=== PATIENT | female | born 1955 | race Caucasian/White ===

== ENCOUNTER 2017-10-12 10:16 | Day surgery (SDC) | payer OTHER ==
[~2017-10-12 10:16] MED LIST: NACL 0.9% 1000 ML 1,000 ML ONE; XYLOCAINE MPF 2% ONE
[2017-10-12] MEDS ORDERED: NACL 0.9% 1000 ML 1,000 ML IV SCH (13:00)
--- NOTE | 2017-10-12 13:52 | Anesthesia Consultation ---
Anesthesia Consult and Med Hx Date of service: 10/12/17 - Airway Anesthetic Teeth Evaluation: Good ROM Head & Neck: Adequate Mental/Hyoid Distance: Adequate Mallampati Class: Class I Intubation Access Assessment: Good - Pulmonary Exam CTA: Yes - Cardiac Exam Cardiac Exam: RRR - Pre-Operative Health Status ASA Pre-Surgery Classification: ASA2 Proposed Anesthetic Plan: IV Sedation - Other Systems Hx Cancer: No
--- NOTE | 2017-10-12 13:52 | Anesthesia Day of Surgery ---
Anesthesia Day of Surgery - Day of Surgery Patient Examined: Yes Patient H&P Reviewed: Yes Patient is NPO: Yes
[2017-10-12] MEDS ORDERED: DIPRIVAN 10 MG/ML IV ONE ×3 (15:33→16:12)
--- NOTE | 2017-10-12 16:15 | Discharge Summary ---
Short Stay Discharge Plan Activity: advance as tolerated Weight Bearing Status: Weight Bear as Tolerated Diet: regular Follow up with: DARNELL WILCOX MD [Primary Care Provider] - 7 Days
--- NOTE | 2017-10-12 16:15 | Operative Report ---
Operative Report Operative Report: Date: 10/12/2017 Operative Report: Date of procedure: 10/12/2017 Procedure: Esophagogastroduodenoscopy with Wire Guided Savory Dilation of the esophagus, multiple mucosal biopsies. Attending physician: Yomi Godoy MD Rod Buster Helper: Yomi Godoy MD Indication: Patient is a 62 -year-old female who presented with a history of epigastric pain, heartburn with indigestion and dysphagia. An upper endoscopy is done to assess patient, so that treatment may be directed based on the findings. Consent: Informed consent was obtained after advising the patient and family regarding nature of this procedure, its indications, potential benefits as well as possible complications including but not limited to bleeding perforation and adverse reaction to medication, infection as well as other cardiopulmonary complications. An informed written and verbal consent was then obtained after due opportunity was provided for questions and answers. Monitoring: Patient was monitored continuously with pulse oximetry and electrocardiographic recordings as well as blood pressure recordings. Vital signs remained stable throughout this procedure with no untoward events. Preoperative assessment: Patient was assessed immediately prior to this procedure for capacity to tolerate monitored anesthesia care and moderate sedation as well as general anesthesia. Patient's ASA classification is 3, Mallampati class is 2, Hyomental distance is 3. Instrument: Drivewyzen video endoscope Medications: Ketamine given intravenously in divided doses. For details please refer to anesthesia records. Description of procedure: Patient was placed in the left lateral decubitus position after achieving sedation, the endoscope was introduced into the esophagus under direct vision. It was then advanced beyond the esophagus into the stomach and then beyond the stomach into the duodenum and to the second portion of the duodenum. It was subsequently withdrawn with careful inspection of all mucosal surfaces with the following findings. Findings: Patient has an irregular Z line at 37 cm. There was a large sliding hiatal hernia seen on entry into the stomach. 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 This was dilated using a savory dilator 45 Tristanian and 48 Tristanian. There was some erythema with erosions in the gastric antrum. Biopsies of the antrum were obtained for histopathology. There were duodenal bulb erosions also noted. Biopsies were obtained from the duodenal bulb for histopathology. Impression: Irregular Z line. 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 Follow pathology report. Direct additional treatment based on the pathology report and patient's overall clinical performance.
[2017-10-12 16:45] VITALS: BP 133/71
== END 2017-10-12 16:39 | disposition home or self-care (01) ==
LOC: GIO 10:16
PROVIDERS: ATTEND Internal Medicine Gastroenterology
DX: K25.7 Chronic gastric ulcer without hemorrhage or perforation (principal); K26.9 Duodenal ulcer, unspecified as acute or chronic, without hemorrhage or perforation; K22.2 Esophageal obstruction; K22.8 Other specified diseases of esophagus; K44.9 Diaphragmatic hernia without obstruction or gangrene; K21.9 Gastro-esophageal reflux disease without esophagitis; E03.9 Hypothyroidism, unspecified
CPT/HCPCS: 43239; 43248; 88305; 88342; J2704; J7030